=== PATIENT | female | born 1990 | race Caucasian/White ===

== ENCOUNTER → 2018-02-20 16:51 | Outpatient (CLI) | payer BC, SELFPAY ==
[2018-02-25 10:46] LABS: HPV APTIMA, High Risk Negative (Negative)
== END ==
PROVIDERS: Visit Provider Obstetrics & Gynecology
DX: Z12.4 Encounter for screening for malignant neoplasm of cervix (principal)
CPT/HCPCS: 88175; G0145

== ENCOUNTER 2018-08-04 15:30 | Outpatient (RCR) | payer OTHER, SELFPAY ==
[2018-07-01 15:29] VITALS: BMI 36.2
--- NOTE | 2018-07-07 16:38 | HP.OTEVAL ---
Patient's Visit Information OANH WANG is a 27 year old F, referred to Occupational Therapy by SKIP Reina, with a diagnosis of synovitis/ tenosynovitis. Date of Evaluation: 07/07/18 Occupational Therapist: CARRIE Rivers/Sharon, CHT - Subjective Subjective: This 27 year old female was seen for intial OT eval following dx of synovitis/ tenosynovitis. pt states she has had difficulty for the last few weeks-. states she notices tingling in the am in all digits and brought it to her employer. Pt states the last two weeks she has been on work restrictions of no repition/ no lift greater than 10 # pt works 8 hour day 5 days a week- pt states pain is better and she has not had numbness return. Pt is right handed, she would like to know how she can return to her job duties without causing more pain. 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 Pain is limiting pt from returning to her job duties at this time. Pt would benefit from skilled OT services 3x week for 4 weeks to ed pt on work ergo, wrist anatomy, and PRE to return pt to OF. Rehabilitation Potential: Good - Anticipated Interventions Anticipated Interventions: Strengthening, Triggerpoint Release, Modalities, Orthoses, Joint Protection/Energy Conservation, Ergonomic Education - Visit Plan Frequency: 2-3x /Week Duration: 4 Weeks TEXT: Thank you for the opportunity to evaluate your patient. For Medicare and Medicare HMO plans, please review the plan of care and approve it. It will need to be FAXED BACK to us at [phone] for Medicare purposes. Please let me know if there are questions or concerns regarding this plan of care. Physician Signature: Date:
--- NOTE | 2018-07-09 08:14 | HP.OTEVAL_ITS ---
Patient's Visit Information OANH WANG is a 27 year old F, referred to Occupational Therapy by SKIP Reina, with a diagnosis of synovitis/ tenosynovitis. Date of Evaluation: 07/07/18 Occupational Therapist: CARRIE Rivers/Sharon, CHT - Subjective Subjective: This 27 year old female was seen for intial OT eval following dx of synovitis/ tenosynovitis. pt states she has had difficulty for the last few weeks-. states she notices tingling in the am in all digits and brought it to her employer. Pt states the last two weeks she has been on work restrictions of no repition/ no lift greater than 10 # pt works 8 hour day 5 days a week- pt states pain is better and she has not had numbness return. Pt is right handed, she would like to know how she can return to her job duties without causing more pain. - Pain right 0 Pain Intensity Range: 0, 5 - ROM Forearm: R/L WNL Wrist: Right 70/65 left 80/65 - Strength Forearm: right 4/5 left 5/5 Wrist: right 4/5 left 5/5 Senior Information Security Analyst: right 105# left 90# Lateral Pinch: right 18# left 20# Tripod Pinch: right 20# 18# - Special Tests WHAT Test: negative - Quick DASH-Disab of Arm,Shoulder& Hand Quick DASH Score: 25.0000 - Goals Goal:: Pt will demo a increase in right UE MMT by 1 mm grade to increase pts ind with ADLs and work tasks by d/c Goal:: pt will report pain no greater than 1/10 with functional use of right hand for work/ADLs tasks by d/c Goal:: pt will demo understanding of wrist mechanics and work ergo by d/c to limit tendon stress with work task by d/c - Rehabilitation General Assessment: 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 Pain is limiting pt from returning to her job duties at this time. Pt would benefit from skilled OT services 3x week for 4 weeks to ed pt on work ergo, wrist anatomy, and PRE to return pt to PLOF. Rehabilitation Potential: Good - Anticipated Interventions Anticipated Interventions: Strengthening, Triggerpoint Release, Modalities, Orthoses, Joint Protection/Energy Conservation, Ergonomic Education - Visit Plan Frequency: 2-3x /Week Duration: 4 Weeks TEXT: Thank you for the opportunity to evaluate your patient. For Medicare and Medicare HMO plans, please review the plan of care and approve it. It will need to be FAXED BACK to us at [phone] for Medicare purposes. Please let me know if there are questions or concerns regarding this plan of care. Physician Signature: Date:
--- NOTE | 2018-08-04 15:51 | HP.OTDCSUM_ITS ---
HP - OT D/C Summary It has been my pleasure to treat OANH WANG under orders from SKIP Reina, for the diagnosis of synovitis/ tenosynovitis for a total of 12 visit(s). Please see the following information for a summary of their discharge status. - Overall Improvement % Improvement: 98 - Objective Objective/Function: pt demo good ROM and functional strength- pt demo a right addictions recovery specialist strength of 10%#. a right tripod pinch of 26#. a right lateral pinch of 20#- pt able to perform all resistive strength testing without pain- - Goals Patient Goals: Use Hand/Wrist/Arm Normally Again, Be More Independent in ADLS Goal:: Pt will demo a increase in right UE MMT by 1 mm grade to increase pts ind with ADLs and work tasks by d/c Goal:: pt will report pain no greater than 1/10 with functional use of right hand for work/ADLs tasks by d/c Goal:: pt will demo understanding of wrist mechanics and work ergo by d/c to limit tendon stress with work task by d/c - Plan Plan: D/C with t-band UB, and forearm PRE- - D/C Information Discharge Comments: pt has made great progress and has met all therapy goals. pt has returned to work and has had no difficulty. pt d/c with cont HEP of stretches, and t-band PRE. pt demo understanding of HEP and agrees to POC. If there are questions or concerns regarding this patient's occupational therapy, please fell free to call me at [phone]. Thank you for the referral of this patient. Sincerely, Joanna Castaneda, OTR/L, CHT
== END 2018-08-04 19:00 | disposition home or self-care (01) ==
LOC: OT 15:30
PROVIDERS: Referring Provider Physician Assistant Surgical; Visit Provider Physician Assistant Surgical
DX: M65.9 Synovitis and tenosynovitis, unspecified (principal)
CPT/HCPCS: 97035; 97110; 97140; 97166; 97530

== ENCOUNTER → 2018-12-23 16:11 | Outpatient (CLI) | payer BC, SELFPAY ==
[2018-07-21 15:15] VITALS: BMI 36.2
[2018-12-23 17:33] LABS: Internal QC Validated? YES +Cl - CLEAR BKGD; Pregnancy, Serum, hCG Quali. NEGATIVE Negative
== END ==
LOC: WOBLAB 16:11
PROVIDERS: Visit Provider Obstetrics & Gynecology
DX: Z36.89 Encounter for other specified antenatal screening (principal)
CPT/HCPCS: 36415; 84703

== ENCOUNTER → 2019-04-08 17:25 | Outpatient (CLI) | payer BC, SELFPAY ==
[2018-07-21 15:15] VITALS: BMI 36.2
[2019-04-12 11:32] LABS: HPV APTIMA, High Risk Negative (Negative)
[2019-04-12 11:37] LABS: HPV Reflexed? YES, CHARGE PATIENT
== END ==
PROVIDERS: Referring Provider Obstetrics & Gynecology; Visit Provider Obstetrics & Gynecology
DX: Z12.4 Encounter for screening for malignant neoplasm of cervix (principal)
CPT/HCPCS: 87624; 88175; G0145

== ENCOUNTER → 2020-04-11 | Outpatient (CLI) | payer BC, SELFPAY ==
[2018-07-21 15:15] VITALS: BMI 36.2
[2020-04-14 10:09] LABS: HPV Reflexed? NOT INDICATED
== END | disposition home or self-care (01) ==
LOC: LABSPEC 04-12 08:53
PROVIDERS: Visit Provider Obstetrics & Gynecology
DX: Z12.4 Encounter for screening for malignant neoplasm of cervix (principal)
CPT/HCPCS: 88175; G0145

== ENCOUNTER → 2020-11-02 16:35 | Outpatient (CLI) | payer BC, SELFPAY ==
[2018-07-21 15:15] VITALS: BMI 36.2
[2020-11-02 18:24] LABS: hCG Titer Quant., Serum < 1 mIU/mL (1-3)
[2020-11-05 03:07] LABS: Chlamydia By Nucleic Acid AMP Negative (Negative)
[2020-11-05 16:44] LABS: Gonococcus By Nucleic Acid AMP Negative (Negative)
== END ==
PROVIDERS: PCP Family Medicine; Visit Provider Obstetrics & Gynecology
DX: N91.2 Amenorrhea, unspecified (principal); Z11.3 Encounter for screening for infections with a predominantly sexual mode of transmission
CPT/HCPCS: 36415; 84702; 87491; 87591

== ENCOUNTER 2022-02-09 06:21 | Emergency (ER) | payer OTHER, SELFPAY ==
[2022-02-09 06:22] VITALS: BP 133/86; PULSE 111; RESP 18; TEMP 36.2; O2SAT 98; BMI 41.3
--- NOTE | 2022-02-09 07:17 | ED.VIS.FEGU ---
HPI HPI - Female History of Present Illness Chief Complaint: Vag Bld, Preg Informant: patient Bleeding Issue: Positive for Vaginal bleeding Onset: Today Context: Sudden Onset Timing: Continuous Current Severity: Mild Current pads/hr: 1 Associated Symptoms Associated Symptoms: Negative for Dysuria, Frequency, Urgency or Hematuria Test: Positive (Patient is 18 weeks ) P: 1 Ab: 1 Narrative Narrative: Patient presents with vaginal bleeding that began this morning. Patient states she is approximately 18 weeks . Patient states that she noted some bleeding this morning when she went to the bathroom. Patient states she had to use a pad for the bleeding. Patient states she has only used 1 pad since it started. Patient denies passing any tissue or clots. Patient is 3 para 1 AB 1. Patient states she had a miscarriage with her last . Patient denies any fevers or chills. [facility] Medical History (Updated 02/09/22 @ 10:[address] Chito Escobedo DO) Human papilloma virus Hx LEEP (loop electrosurgical excision procedure), cervix, Home Medications aspirin 81 mg tablet,delayed release 81 mg PO DAILY 02/09/22 [History Last Taken Unknown] vit (without vit A)-iron,carbonyl-FA 29 mg-1 mg tablet 1 tab PO DAILY 02/09/22 [History Last Taken Unknown] Allergy/AdvReac Type Severity Reaction Status Date / Time No Known Allergies Allergy Verified 02/09/22 06:26 Surgical History H/O dilation and curettage Social History Smoking Status: Never smoker ROS ROS ED Constitutional Constitutional ED: Denies chills or fever(s) Eyes Eyes: Denies blurry vision or change in vision ENT ENT ED: Denies rhinorrhea or sore throat Cardiovascular Cardiovascular: Denies chest pain or palpitations Respiratory/Chest Respiratory/Chest: Denies cough or dyspnea Gastrointestinal Gastrointestinal: Denies nausea or vomiting Genitourinary Genitourinary ED: Denies dysuria or hematuria Musculoskeletal Musculoskeletal: Denies back pain or neck pain Integumentary Denies abscess or rash Neurologic Neurologic: Denies headache(s) or weakness Allergic/Immunologic Allergic/Immunologic ED: Denies mouth swelling or urticaria EXAM Physical Exam Const Vital Signs: 02/09/22 06:22 Temperature 97.2 F L Temperature Source Temporal Pulse Rate 111 H Respiratory Rate 18 Blood Pressure 133/86 H Blood Pressure Mean 101 Pulse Ox 98 Oxygen Delivery Method Room Air Positive well nourished and well developed General Appearance ED: well developed HEENT Reports moist mucous membranes Neck supple and no JVD Resp normal respiratory effort and clear to auscultation bilaterally Cardio regular rate, regular rhythm and no murmurs GI normal to inspection, nondistended, normoactive bowel sounds and non-tender Palpation: soft Extremity normal to inspection General Extremety ED: Negative for edema or tenderness General Extremity: Negative for edema Neuro oriented x3, CN's II-XII intact bilaterally and no sensory deficits noted Sensorium / Orientation: alert Motor Exam: strength 5/5 throughout Psych mental status grossly normal Skin no rashes or lesions noted MDM MDM MDM Narrative Medical decision making narrative: Patient was given IV fluids. Quantitative hCG was 7663. Urinalysis does not show any evidence of urinary tract infection. Pelvic ultrasound was obtained. There is a single live intrauterine with a gestational age of 18 weeks and 2 days. heart rate was 137. This was interpreted by the radiologist and reviewed by myself. Prior labs were reviewed. Patient's blood type is O+. Patient was advised of her findings. Patient was reassured. Patient was instructed to avoid any vaginal intercourse, tampons, or douching. 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 Patient understood and was agreeable with the plan. All questions were answered. Lab Data Attestation: I reviewed the patient's lab results. Labs: Laboratory Results - last 24 hr 02/09/22 02/09/22 07:45 07:45 HCG, Quant 7663 H Urine Color Yellow Urine Clarity Clear Urine pH 7.0 Ur Specific Hughes 1.010 Urine Protein Negative Urine Glucose (UA) Normal Urine Ketones Negative Urine Occult Blood 150 H Urine Nitrite Negative Urine Bilirubin Negative Urine Urobilinogen Normal Ur Leukocyte Esterase Negative Urine RBC 0-5 SEEN Urine WBC 0 SEEN Ur Squamous Epith Cells 0 SEEN Urine Bacteria 0 SEEN Urine Mucus 0 SEEN Radiography Diagnostic Testing: Clinical Impression(s) from Imaging Studies Obstetrics Ultrasound 02/09/22 07:23 IMPRESSION: Single live intrauterine gestation with a mean gestational age of 18 weeks 2 days. Electronically Signed: Zuhair Hughes MD at 9:04 EDT , Discharge Plan Triage Chief Complaint: Vag Bld, Preg ED Provider: Chito Escobedo Dx/Rx/DC Orders Clinical Impression: Threatened miscarriage Instructions: ED Possible Miscarriage ... Prescriptions: No Action aspirin [Aspir-Low] 81 mg Tablet,Delayed Release (Dr/Ec) 81 mg PO DAILY Prenatabs OBN 29-1 mg Tablet 1 tab PO DAILY Primary Care Provider: Efraín Powers Referrals: Efraín Powers MD [Primary Care Provider] - 3-5 Days Eleuterio Sidhu MD [Med Staff - Active Staff] - 3-5 Days Disposition Disposition: Home, Self Care
--- NOTE | 2022-02-09 07:23 | US_ITS ---
STUDY: SECOND AND THIRD TRIMESTER OBSTETRICAL ULTRASOUND - LIMITED REASON FOR EXAM: Female, 31 years old Vaginal bleeding LMP: 10/04/2021. PRIOR ULTRASOUND: None. TECHNIQUE: Transabdominal TECHNICAL QUALITY: Adequate. FINDINGS: There is a single intrauterine fetus. The fetus is in a cephalic presentation. There is demonstrated cardiac activity with a heart rate of 137 bpm. There is a normal amniotic fluid volume. The largest amniotic fluid pocket measures 5.3 cm. The amniotic fluid index (JULISSA) is within normal limits. The placenta is anterior in location and is not low lying. The tip of the placenta is a 5.5 cm proximal to the internal os. There are Grade 0 placental changes. The cervix measures 5.9 cm in length. BIOMETRY: Age by LMP: 18 weeks, 2 days. ERIBERTO by LMP: 07/11/2021. age by current US: 18 weeks, 2 days. ERIBERTO by current US: 07/11/2021. US/OB Limited (No Biometrics) IMPRESSION: Single live intrauterine gestation with a mean gestational age of 18 weeks 2 days. Electronically Signed: Zuhair Hughes MD at 9:04 EDT ,
[2022-02-09] MEDS: 0.9% Normal Saline 1,000 ML 1000 ML IV (07:46)
[2022-02-09 07:51] LABS: Bacteria 0 SEEN /hpf (None Seen); Mucous, Urine 0 SEEN /hpf (<or=2+); Squamous Epithelial Cells - UA 0 SEEN /hpf (5-10); White Blood Cells 0 SEEN /hpf (0-5)
[2022-02-09 08:03] LABS: Color, Urine Yellow (Yellow); Glucose, Dipstick Normal (Normal); Ketone-Dipstick Negative (Negative); Leukocyte Esterase-Dipstick Negative /ul (Negative); Nitrite-Dipstick Negative (Negative); Occult Blood-Urine 150 /ul (Negative); Protein-Dipstick Negative (Negative); Urine Bilirubin Dipstick Negative (Negative); Urine Clarity Clear (Clear); Urine Urobilinogen Normal (Normal)
[2022-02-09 08:08] LABS: Red Blood Cells-Urine 0-5 SEEN /hpf (0-5)
[2022-02-09 08:44] LABS: hCG Titer Quant., Serum 7663 mIU/mL (1-3)
[2022-02-09 10:47] VITALS: PULSE 94; O2SAT 96
== END 2022-02-09 10:48 | disposition home or self-care (01) ==
PROVIDERS: Emergency Provider Emergency Medicine; PCP Family Medicine; Visit Provider Emergency Medicine
DX: O20.0 Threatened abortion (principal); Z3A.18 18 weeks gestation of pregnancy
CPT/HCPCS: 76815; 81001; 84702; 96360; 96361; 99283; J7030; A4216

== ENCOUNTER 2022-05-13 12:31 | Emergency (ER) | payer OTHER, SELFPAY ==
[2022-05-13 12:32] VITALS: BP 141/82; PULSE 102; RESP 18; TEMP 35.6; O2SAT 98; BMI 42.0
--- NOTE | 2022-05-13 12:40 | RAD_ITS ---
EXAM: XR RIGHT HAND COMPLETE, 3 OR MORE VIEWS CLINICAL INDICATION: Injury/Pain -- Thumb, crush injury TECHNIQUE: Frontal, lateral and oblique views of the right thumb. This report was created using [employer] report generation technology. COMPARISON: None. FINDINGS: BONES/JOINTS: Unremarkable. No acute fracture. No subluxation. Normal alignment. Preservation of the joint space. No sclerotic or destructive changes observed. SOFT TISSUES: Unremarkable. No soft tissue swelling or gas. No radiopaque foreign body. RAD/Finger(s) Min 2 Views IMPRESSION: Negative right thumb x-rays. Electronically Signed: Austin Bernardo MD at 13:01 EST ,
--- NOTE | 2022-05-13 12:41 | EX.ED.UPPERE ---
HPI History of Present Illness Chief Complaint: Upper Extremity Injury Detail of Chief Complaint: Crush injury right thumb Informant: patient Occured/Mechanism Mechanism/Context: Yes blunt trauma Comment: Crush injury to right thumb by door. Immunization is uncertain. Denies paresthesia, anesthesia or motor weakness. Third , third trimester Onset/Context/Timing Onset: Hours Context: Sudden Onset Timing: Continuous Quality of Pain: Dull, Aching and Throbbing Location: Right thumb Current Severity: Mild Maximum Severity: Severe Worsened by: Use, movement Relieved by: Nothing Associated Symptoms Associated Symptoms: Positive for Loss of Funtion; Negative for Parasthesia or Weakness Narrative Narrative: Patient is a 31-year-old [id number] woman who presents with crush injury to her right thumb. She is right-hand dominant. She denies paresthesia, anesthesia motors. She is , third trimester. She denies allergies. She denies any other symptoms. Tetanus Immunization: Unknown Prior similar symptoms: No Recent Illness/Hospitalization: No PFSH PFSH Medical History (Updated 05/13/22 @ 14:[address] Arian Ruiz MD) Human papilloma virus Hx LEEP (loop electrosurgical excision procedure), cervix, Home Medications aspirin 81 mg tablet,delayed release 81 mg PO DAILY 02/09/22 [History Last Taken Unknown] vit (without vit A)-iron,carbonyl-FA 29 mg-1 mg tablet 1 tab PO DAILY 02/09/22 [History Last Taken Unknown] cephalexin 500 mg capsule 500 mg PO Q12 #6 CAPSULES 05/13/22 [Rx Last Taken Unknown] Allergy/AdvReac Type Severity Reaction Status Date / Time No Known Allergies Allergy Verified 05/13/22 12:34 Surgical History H/O dilation and curettage Social History (Updated 05/13/22 @ 12:[address] Arian Ruiz MD) household members: spouse and children Smoking Status: Never smoker substance use type: does not use ROS ROS ED Constitutional Constitutional ED: Denies chills, fever(s), subjective, sweats or weight loss Musculoskeletal Musculoskeletal: Reports other Details: Crush injury to right thumb with incomplete avulsion of nail ; Denies back pain, myalgias or neck pain Neurologic Neurologic: Denies paresthesias or weakness Psychiatric Psychiatric: Reports anxiety Hematologic/Lymphatic Hematologic/Lymphatic: Denies easy bleeding or easy bruising EXAM Physical Exam Const Vital Signs: 05/13/22 12:32 Temperature 96.0 F L Temperature Source Temporal Pulse Rate 102 H Respiratory Rate 18 Blood Pressure 141/82 H Blood Pressure Mean 101 Pulse Ox 98 Oxygen Delivery Method Room Air Positive well nourished, well developed and obese General Appearance ED: well developed and NAD; Negative for cyanotic or diaphoretic Nutritional Appearance: obese HEENT normocephalic and atraumatic Eyes PERRL and EOMs intact bilaterally Neck full ROM and supple Resp normal respiratory effort Cardio regular rate and regular rhythm Extremity Negative for normal to inspection Extremity Narrative: There is incomplete of the right thumb nail. There appears to be a nailbed injury. There is swelling of the distal portion of the thumb. Median, radial and ulnar function intact. Capillary refill is normal. Neuro oriented x3 and CN's II-XII intact bilaterally Sensorium / Orientation: alert Psych Mood & Affect: anxious Skin Skin Narrative: Injury right thumb otherwise unremarkable MDM MDM MDM Narrative Medical decision making narrative: Plan is to anesthetize the thumb. X-ray was obtained to rule out fracture. Once the thumb is numb will remove the nail and evaluate for nailbed injury. Patient was told if there is a nailbed injury this may require repair/suturing. The nail would then be sutured in place. She was referred to orthopedics for follow-up. Patient was placed on short course of cephalexin for prophylaxis. She was referred to orthopedist on-call Dr. Yasir Mckeon. Blood pressure is 130/76. Patient is not hyperreflexic. There is no clonus. We will have her follow-up with her OB for repeat blood pressure check in 3 to 5 days. Furthermore there is no edema of the lower extremity. There is no history of preeclampsia or eclampsia with prior or -induced hypertension. Radiography Diagnostic Testing: Three-view x-ray of the right thumb was independently reviewed and interpreted me as negative. There is no evidence of fracture. There is no foreign body. Procedures Other Procedures Procedure(s): The right thumb was blocked using 1% lidocaine. Area was prepped. Digital block was placed using 1% lidocaine. Will reassess in 5 to 10 minutes. If the thumb is completely anesthetized we will remove the remaining portion of the nail. Thumb was not completely anesthetized and required anesthetization of the superficial radial nerve. Once this was performed patient had no sensation at the tip of her thumb. The nail was removed in total. There is a square shaped flap noted. The total length of the nailbed laceration is 24 mm. The wound was irrigated with 125 cc of normal saline. Using 5-0 Vicryl a total of 6 simple interrupted sutures were placed with good cosmesis and hemostasis. There was a laceration that was parallel to the laceration on the ulnar side of the thumb. This was incorporated with the flap laceration. This was distal portion of the nailbed. The nail was cleansed. Using 4-0 Ethilon 1 stitch was used to fasten the nail to the thumb. Patient has a cosmeticly acceptable appearing right thumb. Discharge Plan Triage Chief Complaint: Upper Extremity Injury ED Provider: Arian Ruiz Dx/Rx/DC Orders Clinical Impression: Nailbed injury, Avulsion of nail of right thumb, Third trimester , High blood pressure Instructions: ED Detached Fingernail or Toenail Prescriptions: New cephalexin [cephalexin] 500 mg capsule 500 mg PO Q12 Qty: 6 0RF No Action aspirin [Aspir-Low] 81 mg Tablet,Delayed Release (Dr/Ec) 81 mg PO DAILY Prenatabs OBN 29-1 mg Tablet 1 tab PO DAILY Primary Care Provider: Efraín Powers Referrals: Efraín Powers MD [Primary Care Provider] - Yasir Mckeon DO [Med Staff - Active Staff] - 2 Days for wound check Activity Restrictions/Additional Instructions: 1. Keep wound clean and dry for the next 4872 hours 2. Take antibiotics as instructed 3. If there is any concern for infection return to the emergency department if unable to see Dr. Yasir Mckeon 4. Follow-up with your OB for blood pressure check in 3 to 5 days. Disposition Disposition: Home, Self Care
[2022-05-13] MEDS: Diphth,Pertuss(Acell),Tet Vac 0.5 ML Vial IM (13:19)
[2022-05-13 14:50] VITALS: BP 130/76
[2022-05-13] MEDS: Lidocaine 1% (20 ml mdv) 20 ML Vial INFILT (15:20)
== END 2022-05-13 15:21 | disposition home or self-care (01) ==
PROVIDERS: Emergency Provider Emergency Medicine; PCP Family Medicine; Visit Provider Emergency Medicine
DX: O9A.213 Injury, poisoning and certain other consequences of external causes complicating pregnancy, third trimester (principal); O99.213 Obesity complicating pregnancy, third trimester; O16.3 Unspecified maternal hypertension, third trimester; S67.01XA Crushing injury of right thumb, initial encounter; E66.9 Obesity, unspecified; W23.0XXA Caught, crushed, jammed, or pinched between moving objects, initial encounter; Z3A.00 Weeks of gestation of pregnancy not specified
CPT/HCPCS: 12001; 73140; 90715; 99283

== ENCOUNTER 2022-07-05 07:00 | Inpatient (IN) | payer OTHER, SELFPAY ==
[2022-07-05] VITALS (47 sets, daily range): BP systolic 111–136; BP diastolic 58–86; PULSE 60–104; TEMP 36.1–36.7; O2SAT 96–99; BMI 42.7
--- NOTE | 2022-07-05 08:08 | HP.PCM.OB_ITS ---
HPI - General General Date of Admission: 07/05/22 HPI Narrative OANH WANG, is a 31 F at 39.1 weeks gestation who presents for induction of labor. complicated by obesity, macrosomia, history of macrosomia, post and history of 16 week demise, anxiety and depression. Dilapan placed in office yesterday morning. Maternal Data Information ERIBERTO Calculator Estimated Delivery Date Method Current WG Current Estimate 07/11/22 Manual 39w 1d PFSH PFSH Medical History (Updated 07/05/22 @ 08:17 by Kaci Reyes CNM) Anxiety Depression demise before 20 weeks with retention of fetus Human papilloma virus Hx LEEP (loop electrosurgical excision procedure), cervix, macrosomia Obesity hemorrhage Home Medications aspirin 81 mg tablet,delayed release 81 mg PO DAILY prevent pre e 02/09/22 [History Last Taken 07/04/22 22:00] vit (without vit A)-iron,carbonyl-FA 29 mg-1 mg tablet 1 tab PO DAILY 02/09/22 [History Last Taken 07/04/22 22:00] Allergy/AdvReac Type Severity Reaction Status Date / Time No Known Allergies Allergy Verified 05/13/22 12:34 Surgical History H/O dilation and curettage Social History (Updated 05/13/22 @ 12:[address] Arian Ruiz MD) household members: spouse and children Smoking Status: Never smoker substance use type: does not use History Elective abortions Hx Para 1 Spontaneous abortions Hx # Term Pregnancies Ectopic pregnancies Hx # Pregnancies Multiple births # of living children Visit Details OB Flowsheet Initial Weight: Not Recorded Date -?-?-?-?-?-?-?-?-?-?-?-?- EGA Weight BP Urine Prot -?-?-?-?-?-?-?-?-?-?-?-?- Glucose FHR FuHt Pres Dilation -?-?-?-?-?-?-?-?-?-?-?-?- Effaced St Visit Note 07/05/22 -?-?-?-?-?-?-?-?-?-?-?-?- 39w 1d 306 lb 10.608 oz 123/73 -?-?-?-?-?-?-?-?-?-?-?-?- -?-?-?-?-?-?-?-?-?-?-?-?- NST FHR Rate Baby A Baseline: 140 Variability:: Moderate Accelerations:: 15 x 15 Decelerations:: None NST Reactive:: Yes FHR Category:: Category I Uterine Activity:: irritability ROS Eyes Eyes: Denies blurry vision, change in vision or spots in vision ENT HEENT: Denies dizziness or headache(s) Cardiovascular Cardiovascular: Denies abdominal pain, chest pain or dyspnea Respiratory/Chest Respiratory/Chest: Denies cough, dyspnea, shortness of breath at rest or shortness of breath with exertion Gastrointestinal Gastrointestinal: Denies abdominal pain, diarrhea or vomiting Genitourinary Genitourinary: Denies change in urinary stream, difficulty urinating or dysuria Musculoskeletal Musculoskeletal: Reports none Integumentary Integumentary: Denies rash Neurologic Neurologic: Denies dizziness, headache(s), memory loss or weakness Psychiatric Psychiatric: Reports none Vital Signs Vital Signs Vital Signs: 07/05/22 07:33 07/05/22 07:33 Pulse Rate 104 H Blood Pressure 123/73 H BP Systolic 123 BP Diastolic 73 Weight Weight: 306 lb 10.608 oz Body Mass Index (BMI) 42.7 Physical Exam Const alert, oriented x3 and no apparent distress General Appearance: cooperative Orientation / Consciousness: awake Exam Limitations: no limitations HEENT normocephalic Head and Scalp: normal to inspection Eyes General Eye: normal appearance of both eyes Neck full ROM and no lymphadenopathy Lymph Lymphatic: no lymphadenopathy noted Chest inspection of chest normal Resp normal respiratory effort, normal air movement and clear to auscultation bilaterally Effort and Inspection: able to speak in complete sentences and symmetric chest movement Cardio regular rate and regular rhythm GI normal to inspection, nondistended, normoactive bowel sounds Amniotic Fluid: clear amniotic fluid Back/Spine normal ROM Extremity full ROM and no calf tenderness Skin no rashes or lesions noted General Skin Exam: no breakdown Neuro oriented x3 and CN's II-XII intact bilaterally Psych mental status grossly normal and thought process normal Labs Labs Labs: Blood Type O POSITIVE Antibody Screen NEGATIVE Hct 37.4 % (37-47) Hgb 12.6 g/dl (12.0-15.0) Obstetrics US Rubella IgG Antibody 36.5 IU/mL Hep Bs Antigen Negative (Negative) Chlamydia DNA (JENNIFER) Negative (Negative) Neisseria gonorrhoeae DNA (JENNIFER) Negative (Negative) Rhogam given: No GBS negative Assessment & Plan (1) 39 weeks gestation of : (2) Obesity affecting : (3) Encounter for induction of labor: (4) macrosomia: (5) Depression: (6) Anxiety: (7) History of hemorrhage: PLAN: Plan CE- 5/70/-3 5 Dilapan rods removed intact Admit to labor and delivery Start IV and run per orders Routine labs Start Pitocin 2 mu/min and increase per policy Epidural when indicated Dr. Drake notified of admission and is collaborating physician
[2022-07-05] MEDS: Lactated Ringers 1,000 ML 50 ML IV (08:15)
[2022-07-05 08:21] LABS: Absolute Lymphocyte Count 1.24 X10^3/uL (0.83-4.51); Absolute Neutrophil Count 7.7 X10^3/uL (2.0-7.7); Basophil# 0.02 X10^3/uL; Basophil% 0.2 % (0-1); Eosinophil# 0.06 X10^3/uL; Eosinophils% 0.6 % (0-5); Hematocrit 33.1 % (37-47); Hemoglobin 11.1 g/dL (12.0-15.0); Lymphocyte # 1.24 X10^3/ul (0.83-4.51); Lymphocyte % 13.1 % (19-41); Mean Corp Hgb Conc 33.5 g/dL (32-36); Mean Corpuscular Volume 83.6 fL (81-99); Mean Platelet Vol. 10.8 fl (6.2-12.0); Monocyte# 0.46 X10^3/uL; Monocyte% 4.8 % (0-10); NRBC Flagged by Analyzer 0 % (0-5); Neutrophil # 7.68 X10^3/uL (2.7-7.7); Platelet Count 240 K/mm3 (150-450); RBC Distribution Width CV 14.2 % (11.6-14.6); RBC Distribution Width SD 43.1 fl (35.1-43.9); Red Blood Count 3.96 M/mm3 (4.2-5.4); White Blood Count 9.5 K/mm3 (4.4-11.0)
[2022-07-05] MEDS: Oxytocin 15 Units/NS 250ml 15 UNITS/250 ML IV.SOLN 2 UNITS IV (08:49)
[2022-07-05 08:53] LABS: Syphilis Antibodies Non-reactive
[2022-07-05] MEDS: LACTATED RINGERS 500 ML 999 ML IV (12:28)
[2022-07-05] MEDS: fentaNYL-bupivacaine (epidural) 100 ML BAG EPIDURAL ×4 (13:50→22:26)
[2022-07-05] MEDS: Lactated Ringers 1,000 ML 200 ML IV ×2 (17:49→22:28)
[2022-07-05] MEDS: 0.9% Saline Lock 10 ML Syringe IV (17:56)
--- NOTE | 2022-07-05 18:05 | PCM.PN.BLA ---
Progress Note Patient seen at bedside. Comfortable with epidural anesthesia. Assessment & Plan Assessment/Plan (1) History of hemorrhage: (2) macrosomia: (3) Depression: (4) Anxiety: (5) Encounter for induction of labor: (6) Obesity affecting : (7) 39 weeks gestation of : PLAN: Plan CE- 4.5/70/-2 Cat. 1 tracing IUPC and FSE placed without difficulty Pitocin IV at 14 mu/min- continue to increase per policy Anticipate
[2022-07-06] VITALS (23 sets, daily range): BP systolic 103–139; BP diastolic 54–79; PULSE 74–128; RESP 15–16; TEMP 36–37.3; O2SAT 94–98
--- NOTE | 2022-07-06 00:53 | PCM.PN.BLA ---
Progress Note Called to patients room for CE. Nursing unsure if vertex position. CE 80/-2 tight cervical band felt from previous LEEP. Some caput palpated. TAUS confirms vertex position. Assessment & Plan Assessment/Plan (1) 39 weeks gestation of : (2) Encounter for induction of labor: (3) Obesity affecting : (4) macrosomia: (5) History of hemorrhage: (6) Depression: (7) Anxiety: PLAN: Plan Pitocin IV at 20 mu/min- will turn off and give break TUMS x 2 PO now Restart Pitocin IV at 2 mu/min Continue position changes Cat. 1 tracing Patient remains afebrile Dr. Drake updated and involved in plan of care
[2022-07-06] MEDS: Ondansetron 4 MG/2 ML Vial IV (00:58)
[2022-07-06] MEDS: Calcium Carbonate 500 MG Tablet 1000 MG PO (01:13)
[2022-07-06] MEDS: fentaNYL-bupivacaine (epidural) 100 ML BAG EPIDURAL (03:26)
[2022-07-06] MEDS: Lactated Ringers 1,000 ML 200 ML IV (03:28)
[2022-07-06] MEDS: Acetaminophen 500 MG Tablet PO (06:21)
--- NOTE | 2022-07-06 06:25 | PCM.PN.BLA ---
Progress Note Patient seen at bedside. Resting throughout the night. Comfortable with epidural. Patient requesting to be done with induction at this time and would like a primary section. Assessment & Plan Assessment/Plan (1) History of hemorrhage: (2) macrosomia: (3) Depression: (4) Anxiety: (5) Encounter for induction of labor: (6) Obesity affecting : (7) 39 weeks gestation of : PLAN: Plan CE- 6.5/80/-2 Caput palpated, Asynclitic- still feeling tight cervical band Pitocin IV at 10 mu/min Dr. Drake updated and decision made for primary section Patient agrees with plan of care
[2022-07-06] MEDS: Sodium Citrate/Citric Acid 30 ML UDC PO (07:17)
--- NOTE | 2022-07-06 08:00 | PLAC_PTH ---
PATIENT: OANH VERA LOC: [facility] U#:[id number] AGE/SX: 31/F ROOM: [facility] RE07/05/[address]: Dr. Marija Drake MD : 1990 BED: 1 DIS: 07/07/2022 SPEC #: [id number] RECD: 07/06/22 13:04 STATUS: BRIAN DOBBS #: [id number] STEVO: 07/06/22 08:[address]: Mairja Drake DEPT: SURGICAL PATHOLOGY RECD BY: Eva Crockett ENTERED: 07/06/22 13:05 SP TYPE: PLACENTA OTHR DR: Dr. Efraín Powers MD Tissues: Placenta, NOS Procedures: Surgery Specimen Level V HEADER OPERATION: Primary section PRE-OP DIAGNOSIS: Arrest of descent, LGA TISSUE SUBMITTED: Placenta MICROSCOPIC DIAGNOSIS Placenta: Placental disc - third trimester placenta (689 gm). - Acute vasculitis of subamniotic blood vessels. Membranes - acute chorioamnionitis. Umbilical cord - three blood vessels and acute funisitis. SJ:corine 07/10/2022 MICROSCOPIC DESCRIPTION Slides are reviewed. GROSS DESCRIPTION SPECIMEN: PLACENTA / CLINICAL INFORMATION: A. Weight: 4.49 kg B. Gestational Age: 39 weeks C. Sex: Female PLACENTAL WEIGHT (POST FIXATION): 689 gm PLACENTAL DIMENSIONS: 19.0 x 19.0 x 4.0 cm PLACENTAL SHAPE: Usual ovoid PLACENTAL WEIGHT FOR GESTATIONAL AGE: Over 99th percentile MEMBRANES ? only a portion of membrane is present. A. Insertion: Marginal B. Site of rupture from edge: Distance of rupture cannot be assessed as only a small portion of membrane present in the specimen. C. Color of membrane: Mac-lares D. Abnormalities: None UMBILICAL CORD - Present A. Color: Mac-lares B. Insertion: Central C. Length: 45.0 cm D. Diameter: 1.0 cm E. Number of vessels: Three F. Abnormalities: None PLACENTAL DISC - Present A. Color of surface: Mac-lares B. surface abnormalities: None C. Maternal cotyledons: Intact with minimal tears D. Attached retro placental clot: A small amount of blood clots are noted on the central portion of the placenta. E. Cut surface: Dark red and spongy F. Lesions: None G. Separate clot: Absent SECTIONS SUBMITTED: 1. Membrane roll 2. Cord, maternal end 3. Cord, end 4. Placental disc, and maternal surfaces 5. Placental disc, and maternal surfaces 6. Placental disc, and maternal surfaces, portion of placenta with blood clot SJ:corine 07/09/2022 TC: CPT: 99058
--- NOTE | 2022-07-06 08:18 | EX.PCM.OBRPT ---
Maternal Data Information ERIBERTO Calculator Estimated Delivery Date Method Current WG Current Estimate 07/11/22 Manual 39w 2d Final ERIBERTO: 07/11/22 Gestational age: 39 2/7 Details Operative Information Date of Procedure: 07/06/22 Pre-Operative Diagnosis: arrest of descent, CPD Post-Operative Diagnosis: same Classification: BALTA Procedure Type: low transverse technical writing lead/mgr #1: Jill Farrell Type of Anesthesia: Spinal Anesthesiologist: David Kauffman Special Medications: none Antibiotic Given: Ancef 3 grams IV x1 and Zithromax 500 mg/5 mL X1 Drain: Guadalupe to straight drain Estimated Blood Loss: 900 Fluids Replaced: 1500 Procedure Start Time: 07:43 Procedure Stop Time: 08:25 Time of Delivery: 07:47 Findings Description of Procedure: The patient has been approximately 6 cm for greater than 8 hours. Contractions have been adequate. She was on Pitocin. Estimated weight was noted to be large for gestational age. Pelvis was clinically adequate and patient had had a 9 pound 4 ounce delivery before. However, over 8 hours there is minimal cervical change and no significant descent. Decision was made to proceed with a section for arrest of descent and dilatation and CPD. The patient was taken to the operating room. She was prepped and draped in the dorsal supine position with a leftward tilt. A Pfannenstiel skin incision was made approximately 2 cm above the symphysis pubis and carried through to underlying layer fascia with the scalpel. The fascia was incised incised in the midline and extended laterally with blunt dissection. The rectus muscles were in the midline and the peritoneum was entered bluntly. The peritoneal incision was stretched and the bladder blade was placed. The uterine incision was made in a low transverse fashion with the scalpel and extended superiorly and inferiorly with blunt dissection. . The 's head was brought to the incision in the flexed position and delivered without difficulty. The right shoulder was delivered with gentle traction and fundal pressure in the standard fashion. The left shoulder would not deliver. I then I was able to deliver the left shoulder but the right shoulder had retracted back into the uterus. I then had to deliver the left arm which was swept out over the 's chest and brought out. Then the shoulder and arm delivered and the remainder to deliver delivered easily.. The mouth and nares were bulb suctioned. The cord was clamped and cut as the infant was stimulated. Cord clamping was not delayed as the was not initially crying. The was handed off to the waiting nursing staff. The placenta was delivered with fundal massage and gentle traction in the standard fashion. The uterus was left in situ and cleared of all clots and debri. The Michael O retractor was used to assist with visualization during the procedure. The uterine incision was closed with #1 Vicryl in a running locked fashion. A second layer of the same suture was used in an imbricating fashion to obtain hemostasis. The incision was examined and was found to be hemostatic. Some Justa was placed over the uterine incision. The rectus muscles were examined and any bleeding was Bovie cauterized. The parietal peritoneum and rectus muscles were closed en bloc with an 0 Vicryl running suture. The rest of bottle of Justa was placed over the rectus muscles. A second bottle of Justa was used to place in the subcutaneous tissue and over the rectus muscles. The rectus fascia was examined and any bleeding was Bovie cauterized and the rectus fascia was closed with #1 looped PDS suture in a running standard fashion. The subcutaneous tissue was examining and any bleeding was Bovie cauterized. The subcutaneous tissue was reapproximated with 3-0 Vicryl suture. The skin was closed in a subcuticular fashion by the COMPLIANCE AIDE with me present in the labor and delivery suite. I performed the remainder of the procedure with assistance. All sponge, lap, and needle counts were correct. The patient was taken to her room for recovery in a stable condition. Apgars were not available per nursing at the time of this note. Presentation: Positive for Vertex Amniotic Membrane Rupture Type: Artificial Amniotic Fluid Description: Clear Placental Delivery Description: Expressed Placenta Disposition: [facility] Specimen(s) Sent to Pathology: placenta Cord Vessel Description: 3 Vessels Cord Entanglement: Around neck x 1, loose Nuchal Cord Compression: Without compression Cord Gases: ABG and VBG Infant A Gender: Male (Tio 9lb 14 oz) Complications Complications: none
[2022-07-06] MEDS: Oxytocin 15 Units/NS 250ml 15 UNITS/250 ML IV.SOLN 83 UNITS IV (09:00)
[2022-07-06] MEDS: miSOPROStol 200 MCG Tablet 800 MCG VAGINAL (09:00)
[2022-07-06] MEDS: Ketorolac 30 MG/ML Syringe IV ×3 (09:35→21:30)
[2022-07-06] MEDS: 0.9% Saline Lock 10 ML Syringe IV ×4 (09:36→21:30)
[2022-07-06 12:05] LABS: Pathology Specimen OB SEE PATHOLOGY REPORT
[2022-07-06] MEDS: Acetaminophen 500 MG Tablet 1000 MG PO ×2 (12:07→18:13)
[2022-07-06] MEDS: Lactated Ringers 1,000 ML 100 ML IV (12:07)
[2022-07-06] MEDS: HYDROmorphone 1 MG/ML Syringe IV (14:58)
[2022-07-06] MEDS: oxyCODONE 5 MG Tablet PO ×2 (19:03→23:32)
[2022-07-06] MEDS: Enoxaparin 40 MG/0.4 ML Syringe SC (20:24)
[2022-07-07] MEDS: Acetaminophen 500 MG Tablet 1000 MG PO ×3 (00:05→12:10)
[2022-07-07 00:06] VITALS: BP 128/77; PULSE 87; RESP 16; TEMP 36.7; O2SAT 96
[2022-07-07 03:28] VITALS: BP 120/68; PULSE 89; RESP 16; TEMP 36.7; O2SAT 97
[2022-07-07] MEDS: Ketorolac 30 MG/ML Syringe IV (03:33)
[2022-07-07] MEDS: 0.9% Saline Lock 10 ML Syringe IV (03:33)
[2022-07-07 07:36] LABS: Hematocrit 30.1 % (37-47); Hemoglobin 9.7 g/dL (12.0-15.0); Mean Corp Hgb Conc 32.2 g/dL (32-36); Mean Corpuscular Hgb 27.7 pg (27.0-32.0); Mean Platelet Vol. 11.2 fl (6.2-12.0); Platelet Count 195 K/mm3 (150-450); RBC Distribution Width CV 14.4 % (11.6-14.6); RBC Distribution Width SD 45.1 fl (35.1-43.9); White Blood Count 12.1 K/mm3 (4.4-11.0)
[2022-07-07 08:00] VITALS: BP 120/69; PULSE 105; RESP 16; TEMP 36.6
--- NOTE | 2022-07-07 08:48 | PN.OBGYN_ITS ---
Subjective Subjective Doing well per patient and nursing staff. Ambulating and taking PO without difficulty. Voiding and passing flatus. Pain controlled. , services for assistance. Denies headache, visual changes, chest pain, shortness of breath, leg pain or increased bleeding. Lochia normal. Objective Data Objective Data Vital Signs: Vital Signs Temp Pulse Resp BP Pulse Ox O2 Del Method 98.1 F 89 16 120/68 97 Room Air 07/07/22 03:28 07/07/22 03:28 07/07/22 03:28 07/07/22 03:28 07/07/22 03:28 07/07/22 03:28 Oxygen Delivery Method Room Air Weight: 306 lb 10.608 oz Body Mass Index (BMI) 42.7 Intake & Output: Intake and Output for Last 24 Hours 07/05/22 07/06/22 07/07/22 23:59 23:59 23:59 Intake Total 3322.83 / 3322.83 3376.31 / 3376.31 Output Total 1300 / 1300 3500 / 3500 Balance 2021.83 / 2021. -123.69 / -123.69 Lab / Micro Data Result Diagrams: 07/07/22 07:20 Labs: Laboratory Results - last 24 hr 07/07/22 07:20: WBC 12.1 H, RBC 3.50 L, Hgb 9.7 L, Hct 30.1 L, MCV 86.0, MCH 27.7, MCHC 32.2, RDW Std Deviation 45.1 H, RDW Coeff of Arvin 14.4, Plt Count 195, MPV 11.2 ROS Constitutional Constitutional: Reports systems reviewed and no addt'l complaints, except as documented; Denies headache(s) Eyes Eyes: Denies acute decrease in peripheral vision, blurry vision or change in vision ENT HEENT: Reports systems reviewed and no addt'l complaints, except as documented Cardiovascular Cardiovascular: Denies chest pain or dizziness Respiratory/Chest Respiratory/Chest: Denies cough, dyspnea, dyspnea on exertion, shortness of holly th at rest or shortness of breath with exertion Gastrointestinal Gastrointestinal: Denies abdominal pain, diarrhea, nausea or vomiting Genitourinary Genitourinary: Denies abdominal discomfort Musculoskeletal Musculoskeletal: Denies limited range of motion Integumentary Integumentary: Reports systems reviewed and no addt'l complaints, except as documented Neurologic Neurologic: Reports systems reviewed and no addt'l complaints, except as documented Psychiatric Psychiatric: Reports systems reviewed and no addt'l complaints, except as documented Endocrine Endocrinology: Reports systems reviewed and no addt'l complaints, except as documented Hematologic/Lymphatic Hematologic/Lymphatic: Reports systems reviewed and no addt'l complaints, except as documented Allergic/Immunologic Allergic/Immunologic: Reports systems reviewed and no addt'l complaints, except as documented Physical Exam Const alert and oriented x3 General Appearance: cooperative Orientation / Consciousness: awake, oriented to person, oriented to place and oriented to time Exam Limitations: no limitations HEENT normocephalic Head and Scalp: normal to inspection, normocephalic and atraumatic Face and Sinus: normal facial exam Eyes General Eye: normal appearance of both eyes Neck full ROM Chest Chest: symmetrical chest wall rise Resp normal respiratory effort and normal air movement Auscultation: clear to auscultation bilaterally Cardio regular rate, regular rhythm, S1 normal heart sound, S2 normal heart sound, no murmurs, no rub, no gallops and no clicks GI GI Narrative: dressing dry and intact. Bladder / Kidney Exam: no CVA tenderness Back/Spine normal ROM Extremity normal to inspection and full ROM Skin no rashes or lesions noted Neuro oriented x3 and moves all extremities Sensorium / Orientation: awake, alert and oriented to person Motor Exam: clonus absent Deep Tendon Reflexes: Rt Patellar (L4): 2+ and Lt Patellar (L4): 2+ Assessment & Plan (1) Delivery by section: PLAN: Plan 1) Routine care 2) Vitals stable 3) H&H stable 4) Pain management 5) I&O 6) D/C home today per patient request 7) Follow up in 1-2 weeks for incision check and 6 weeks for PP visit
--- NOTE | 2022-07-07 08:51 | CASEMGMT ---
Social Work Assessment for WP Date/Time of referral: 07/06/22, 17:33 Referred by: Sendy Gonzalez Date/Time of intervention: 07/07/22, 8:15am Reason for Referral: anxiety, depression History obtained from: MOB and FOB initially, then MOB, father stepped out Household composition: MOB, FOB Hermelindo Jackson, 13 yr old son, and now baby Tio. FOB for 13 yr old is intermittently involved, has visitation w/biological father. As per MOB, Hermelindo and 13 yr old get along. MOB and FOB have been together for 4 years. Medical History: MOB--hx of depression and anxiety, 16 week demise 5 years ago, macrosomia, obesity, tenosynovitis, history of LEEP, HPV, hemorrhage, obesity. Baby--baby boy born 07/06[birth year] at 7:47am, 4490g at . Apgars 3, 8 and 9 at 1, 5 and 10 minutes. Baby born stunned requiring PPV and blow by O2. Baby large for gestational age. Patients parent/guardian status: MOB and FOB are guardians of this baby. MOB is guardian of 13 yr old, and FOB of 13 yr old has visitation. Educational Status: Both MOB and FOB completed high school Financial Status: No concerns, both MOB and FOB work for [employer] Infant supplies: They have car seat, crib, bassinet, clothing, diapers, wipes. They have access to bottles and formula if needed, MOB plans to breast feed Childcare/Caregivers: Both sides of family involved and will watch children. MOB and FOB mentioned both of their mothers in particular as being supportive, and aunts and uncles. When MOB returns to work the baby will go to a sitter. Transportation: They have 2 vehicles Programs/Agencies involved: None Children's services/legal issues: None. MOB states no Children's Services with 13 yr old either. She states that her son now has the option to not go with his father for visitation, and it has been better, less stressful. Behavioral Health issues: Substance abuse: None reported for MOB or FOB, no tox screens in chart for MOB or baby. Mental Health history: FOB--some history of anxiety and depression, was on meds. FOB did not feel it helped but MOB does think it helped. SW encouraged FOB to speak to PCP should he have an increase in symptoms. FOB then left. SW spoke w/MOB about history of anxiety and depression. MOB explained that she had a loss 5 years ago and her partner was not supportive. MOB explains she did not really deal with it until she finally realized she had to. She did go on medication. She also moved in September, and states moving helped a lot. MOB states she went off medication and has been managing fine off of the medication, has not felt the need to go back on. She has not been to counseling, though states had been encouraged in the past to do so. Family/Social Stressors: MOB reports no stressors at present. Depression and Anxiety/Shaken Baby/Safe Sleeping/Crisis Hotline/Mental Health Providers List/[facility]/Help Me Grow: SW gave MOB information on all of these topics and reviewed the information, in particular the information about PPD, crisis numbers, and mental health providers. Assessment: MOB and FOB both appropriate and answered all questions. MOB holding baby and appearing appropriate in care of . SW did speak w/MOB about mental health and encouraged her to go back to PCP or ELECTROENCEPHALOGRAPHIC TECHNICIAN should she start to have PPD symptoms, and also encouraged her to pursue counseling should she have an increase in symptoms. MOB states understanding. Plan: Baby to go home w/MOB and FOB, no additional psychiatric social worker needs identified at this time. DAINA Juarez
--- NOTE | 2022-07-07 09:22 | PCM.DC.SUM ---
Providers Date of Admission: 07/05/22 Primary Care Physician: Dr. Efraín Powers MD Reason For Visit: PRIMARY C SECTION Diagnosis Discharge Diagnosis (1) Delivery by section: Status: Acute Plan 1) Routine care 2) Vitals stable 3) H&H stable 4) Pain management 5) I&O 6) D/C home today per patient request 7) Follow up in 1-2 weeks for incision check and 6 weeks for PP visit Medications at Discharge Home Medications vit (without vit A)-iron,carbonyl-FA 29 mg-1 mg tablet 1 tab PO DAILY 02/09/22 acetaminophen 500 mg tablet 1,000 mg PO Q6 #0 tabs 07/07/22 ibuprofen 600 mg tablet 600 mg PO Q6H #30 tabs 07/07/22 oxycodone 5 mg tablet 5 mg PO Q6H 7 days #10 tabs 07/07/22 Hospital Course Summary of Care Provided Hospital Course: Presented on 07/05/22 for induction of labor due to obesity. Failure to progress and delivered by section on 07/06/22. course uncomplicated. Acute blood loss anemia. Discharge home on day #1 Weight / BMI Weight Weight: 306 lb 10.608 oz Body Mass Index (BMI) 42.7 ABG / Lab / Microbiology Data Result Diagrams: 07/07/22 07:20 Laboratory: Laboratory Results - last 24 hr 07/07/22 07:20: WBC 12.1 H, RBC 3.50 L, Hgb 9.7 L, Hct 30.1 L, MCV 86.0, MCH 27.7, MCHC 32.2, RDW Std Deviation 45.1 H, RDW Coeff of Arvin 14.4, Plt Count 195, MPV 11.2 Meaningful Use Info Meaningful Use Diagnoses (Choose all that apply): None applicable Discharge Plan Admission Admit Date/Time: 07/05/22 07:00 Primary Reason for Your Visit: Low Transverse Section Attending Provider: Marija Drake Primary Care Provider: Efraín Powers Instructions Patient Instructions: After a Discharge Orders/Prescriptions Prescriptions: New acetaminophen 500 mg Tablet 1,000 mg PO Q6 Qty: 0 0RF ibuprofen 600 mg Tablet 600 mg PO Q6H Qty: 30 0RF oxycodone 5 mg Tablet 5 mg PO Q6H 7 Days Qty: 10 0RF Continued PNV w/o vit A-iron,carbonyl-FA 29-1 mg Tablet 1 tab PO DAILY Discontinued aspirin [Aspir-Low] 81 mg Tablet,Delayed Release (Dr/Ec) 81 mg PO DAILY Referrals / Follow Up: Efraín Powers MD [Primary Care Provider] - Marija Drake MD [Med Staff - Active Staff] - Disposition Disposition (needs filled in before D/C Order can be placed): Home, Self Care
[2022-07-07] MEDS: Senna/Docusate Sodium 1 Tablet PO (09:49)
[2022-07-07] MEDS: Ibuprofen 600 MG Tablet PO (09:49)
[2022-07-07] MEDS: Enoxaparin 40 MG/0.4 ML Syringe SC (09:50)
[2022-07-07 14:26] VITALS: BP 120/70; PULSE 97; RESP 16; TEMP 36.8
--- NOTE | 2022-08-02 12:01 | NURSING ---
08/02/22 Mode of delivery edited from Vaginal to BALTA c/s
== END 2022-07-07 15:15 | disposition home or self-care (01) | DRG 786 ==
PROVIDERS: Advanced Practice Midwife; Admitting Provider Obstetrics & Gynecology; PCP Family Medicine; Visit Provider Obstetrics & Gynecology
DX: O62.1 Secondary uterine inertia (principal); O41.1230 Chorioamnionitis, third trimester, not applicable or unspecified; D62 Acute posthemorrhagic anemia; O99.214 Obesity complicating childbirth; F41.9 Anxiety disorder, unspecified; O33.9 Maternal care for disproportion, unspecified; O36.63X0 Maternal care for excessive fetal growth, third trimester, not applicable or unspecified; O69.81X0 Labor and delivery complicated by cord around neck, without compression, not applicable or unspecified; O99.344 Other mental disorders complicating childbirth; F32.A Depression, unspecified; Z3A.39 39 weeks gestation of pregnancy; O90.81 Anemia of the puerperium; Z37.0 Single live birth; Z87.59 Personal history of other complications of pregnancy, childbirth and the puerperium
CPT/HCPCS: 36415; 59025; 59050; 85025; 85027; 86780; 86850; 86900; 86901; 88307; 99221; 99252; J7120; A4216; G0378; G0463; J2405

== ENCOUNTER → 2024-08-20 | Outpatient (CLI) | payer BC, SELFPAY ==
[2024-08-20 18:31] LABS: Anion Gap 13 (5-15); BUN 15 mg/dL (4-19); BUN/Creat Ratio 15.4 RATIO (10-20); Calcium,Total 9.2 mg/dL (7.6-11.0); Carbon Dioxide 19.4 mmol/L (21.0-32.0); Chloride 107 mmol/L (98-108); Cholesterol 161 mg/dL (<=200); Creatinine, Serum 0.98 mg/dL (0.70-1.20); EST Glomerular Filtration Rate 77 (>60); Glucose 115 mg/dL (70-99); High Density Lipoprotein 43 mg/dL; Low Density Lipoprotein Calc. 90 mg/dL; Potassium 4.1 mmol/L (3.3-5.1); Sodium Level 139 mmol/L (133-145); Triglycerides 142 mg/dL; Very Low Density Lipoprotein 28 mg/dL (5-40); cholesterol:hdl ratio screen 3.76
== END | disposition home or self-care (01) ==
PROVIDERS: PCP Family Medicine; Referring Provider Family Medicine; Visit Provider Family Medicine
DX: Z00.00 Encounter for general adult medical examination without abnormal findings (principal); F41.9 Anxiety disorder, unspecified
CPT/HCPCS: 36415; 80048; 80061; 84443